=== PATIENT | female | born 1965 | race Caucasian/White ===

== ENCOUNTER 2018-08-05 07:46 | Day surgery (SDC) | payer BC ==
[2018-08-03 09:24] VITALS: BMI 31.3
[~2018-08-05 07:46] MED LIST: LACTATED RINGERS 1,000 ML IV SCH; LIDOCAINE 1% 20 ML VIAL (10MG/ML) FOR IV START INTRADERMA PRN
[2018-08-05 08:08] VITALS: TEMP 98.5
[2018-08-05] MEDS ORDERED: PROPOFOL 10 MG/ML 20 ML VIAL IV ONE (08:26)
--- NOTE | 2018-08-05 08:50 | P.GSHP ---
History of Present Illness H&P Date: 08/05/18 Chief Complaint: Screening colonoscopy This a 53-year-old female presents today screening colonoscopy. Patient's had complaints of some constipation. Past Medical History Past Medical History: Asthma, GERD/Reflux, Hyperlipidemia Additional Past Medical History / Comment(s): HAD EPISODE OF BLOOD IN STOOL AND CHANGE IN BOWEL HABITS History of Any Multi-Drug Resistant Organisms: None Reported Past Surgical History: Cholecystectomy, Orthopedic Surgery Additional Past Surgical History / Comment(s): REAR LATERAL RELEASE IN MARIBEL LOWER LEGS. LASIK MARIBEL EYES, BONE SPUR LT SHOULDER REPAIR Past Anesthesia/Blood Transfusion Reactions: Motion Sickness Smoking Status: Never smoker - Past Family History Mother Family Medical History: Cancer Medications and Allergies Home Medications Medication Instructions Recorded Confirmed Type Montelukast [Singulair] 10 mg PO HS 02/23/14 08/05/18 History 80k-Biote Brand 1 cap PO DAILY 08/03/18 History Atorvastatin [Lipitor] 20 mg PO HS 08/03/18 08/05/18 History Cyanocobalamin (Vitamin B-12) 1,000 mcg PO DAILY 08/03/18 08/05/18 History [Vitamin B-12] Dim-Cap 1 cap PO DAILY 08/03/18 History Iodine 12.5 mg PO DAILY 08/03/18 08/05/18 History Iron-25mg 25 mg PO DAILY 08/03/18 08/05/18 History L.acidoph,Paracasei, B.lactis 1 each PO DAILY 08/03/18 08/05/18 History [Probiotic] Pnv No.95/Ferrous Fum/Folic AC 1 each PO DAILY 08/03/18 08/05/18 History [ Multivitamin Tablet] Progesterone, Micronized 400 mg PO HS 08/03/18 08/05/18 History [Progesterone] Omeprazole [PriLOSEC] 10 mg PO DAILY 08/05/18 08/05/18 History Allergies Allergy/AdvReac Type Severity Reaction Status Date / Time adhesive tape Allergy Rash/Hives Verified 08/05/18 08:04 codeine Allergy Rash/Hives Verified 08/05/18 08:04 Penicillins Allergy Rash/Hives Verified 08/05/18 08:04 Sulfa (Sulfonamide Allergy Rash/Hives, Verified 08/05/18 08:04 Antibiotics) MUSCLE SPASMS venom-honey bee Allergy Unknown Verified 08/05/18 08:04 [bee venom (honey bee)] NARCOTIC PAIN RX AdvReac "MAKES ME Uncoded 08/05/18 08:04 STONED," KNOCKED OUT, USELESS." Surgical - Exam Vital Signs Temp Pulse Resp BP Pulse Ox 98.5 F 68 16 147/67 97 08/05/18 07:58 08/05/18 07:58 08/05/18 07:58 08/05/18 07:58 08/05/18 07:58 - General well developed, well nourished, no distress - Eyes PERRL - ENT normal pinna - Neck no masses - Respiratory normal expansion - Cardiovascular Rhythm: regular - Abdomen Abdomen: soft, non tender Assessment and Plan Assessment: We'll perform screening colonoscopy
--- NOTE | 2018-08-05 09:00 | P.OP ---
Date of Procedure: 08/05/18 Preoperative Diagnosis: Screening colonoscopy Postoperative Diagnosis: Mild diverticulosis Procedure(s) Performed: Colonoscopy Anesthesia: MAC Surgeon: Avni Garcia Pathology: none sent Condition: stable Disposition: PACU Description of Procedure: Patient's placed on the endoscopy table in the lateral position. She received IV sedation. The digital rectal exam was performed which revealed no abnormalities. The flexible colonoscope then placed patient anus and passed throughout the entire colon. The ileocecal valve was visualized. The cecum, ascending colon, transverse colon appeared normal. In the descending and sigmoid: There was some very mild diverticulosis. The scope was then brought back the rectum and this appeared normal. Scope was withdrawn for patient.
[2018-08-05 09:07] VITALS: RESP 18
[2018-08-05 09:28] VITALS: BP 100/61; PULSE 64
== END 2018-08-05 09:57 | disposition home or self-care (01) ==
LOC: ORWHC2ENDO 07:46
PROVIDERS: ATTEND Surgery
DX: K57.31 Diverticulosis of large intestine without perforation or abscess with bleeding (principal); E78.5 Hyperlipidemia, unspecified; J45.909 Unspecified asthma, uncomplicated; K21.9 Gastro-esophageal reflux disease without esophagitis; Z79.899 Other long term (current) drug therapy; Z88.0 Allergy status to penicillin; Z88.2 Allergy status to sulfonamides; Z88.5 Allergy status to narcotic agent; Z91.030 Bee allergy status; Z90.49 Acquired absence of other specified parts of digestive tract; Z79.3 Long term (current) use of hormonal contraceptives
CPT/HCPCS: 45378; J2704

== ENCOUNTER → 2018-10-25 | Outpatient (CLI) | payer BC ==
--- NOTE | 2018-10-31 09:54 | MM ---
Reason for exam: screening (asymptomatic). Last mammogram was performed 3 years and 3 months ago. History: Patient is postmenopausal and is nulliparous. Taking estrogen beginning at age 51. Taking progesterone beginning at age 51. Physical Findings: A clinical breast exam by your physician is recommended on an annual basis and results should be correlated with mammographic findings. MG 3D Screening Mammo W/Cad Bilateral CC and MLO view(s) were taken. Prior study comparison: July 31, 2015, mammogram, performed at [facility]. January 15, 2012, mammogram, performed at [facility]. The breast tissue is heterogeneously dense. This may lower the sensitivity of mammography. There are benign appearing round calcifications bilaterally. There is no discrete abnormality. ASSESSMENT: Benign, BI-RAD 2 RECOMMENDATION: Routine screening mammogram of both breasts in 1 year.
== END | disposition home or self-care (01) ==
LOC: RADMAMWWP 07:01
PROVIDERS: ATTEND Obstetrics & Gynecology
DX: Z12.31 Encounter for screening mammogram for malignant neoplasm of breast (principal)
CPT/HCPCS: 77063; 77067

== ENCOUNTER → 2019-04-13 | Outpatient (CLI) | payer BC ==
--- NOTE | 2019-04-13 11:09 | CT ---
EXAMINATION TYPE: CT abdomen pelvis wo con DATE OF EXAM: 04/13/2019 COMPARISON: 05/23/2012 INDICATION: Abdomen Pain, bloody stool, bloating, fever, chills and Nausea x 11months DLP: 894 mGycm, Automated exposure control for dose reduction was used. CONTRAST: 0 mL of Isovue 300. Study performed without Oral Contrast TECHNIQUE: Axial images were obtained from above the diaphragm to the pubic rami in the axial plane a t 5 mm thick sections. Reconstructed images are reviewed on the computer in the coronal plane. FINDINGS: Limited CT sections are obtained the lung bases. The lung bases are clear. CT ABDOMEN: Liver: Normal Spleen: Normal Pancreas: Normal Adrenal glands: The adrenal glands are normal. Gallbladder: Surgically absent Kidneys: No masses are evident. No hydronephrosis is present. No cysts are present. No renal stone s are identified. Aorta: Vascular calcification is within the aorta. Inferior vena cava: Normal. CT PELVIS: Loops of bowel within the abdomen and pelvis are normal. This study is performed without oral con trast limiting bowel evaluation. Appendix: Normal as visualized. Urinary bladder: Normal. Genitourinary structures: Uterus is normal. Adnexal regions are clear. Osseous structures: No suspicious lytic or sclerotic lesions. IMPRESSIONS: 1. Unremarkable noncontrast CT abdomen pelvis
== END ==
LOC: RADCTMAIN 07:52
PROVIDERS: ATTEND Family Medicine
DX: R10.9 Unspecified abdominal pain (principal)
CPT/HCPCS: 74176

== ENCOUNTER → 2019-05-05 | Outpatient (CLI) | payer BC | END | disposition home or self-care (01) | LOC: LABWHC1 14:12 → EDSTATUS 15:18 | PROVIDERS: ATTEND Nurse Practitioner | DX: K52.9 Noninfective gastroenteritis and colitis, unspecified (principal) | CPT/HCPCS: 36415; 83630; 83993; 85652; 86140; 87045; 87046; 87328; 87329 ==

== ENCOUNTER 2019-07-11 08:46 | Day surgery (SDC) | payer BC ==
[2019-07-10 11:15] VITALS: BMI 29.7
[~2019-07-11 08:46] MED LIST changes: +LIDOCAINE 1% (10MG/ML) FOR IV START INTRADERMA PRN; -LIDOCAINE 1% 20 ML VIAL (10MG/ML) FOR IV START INTRADERMA PRN
[2019-07-11 09:19] VITALS: RESP 16; TEMP 97.6
[2019-07-11] MEDS ORDERED: PROPOFOL 10 MG/ML 20 ML VIAL IV ONE (09:41)
[2019-07-11] MEDS ORDERED: LIDOCAINE 1% INJ 10MG/ML (20 ML MDV) ONE (09:41)
[2019-07-11] MEDS ORDERED: IV FLUID CONTINUATION 250 ML IV ONE (10:07)
--- NOTE | 2019-07-11 10:08 | P.PCN ---
Date of Procedure: 07/11/19 Description of Procedure: BRIEF HISTORY: Patient is a 54-year-old female presenting for evaluation of intermittent blood tinged bowel movements. Symptoms have been present for approximately 6 months. Patient reports abdominal pain, intermittent diarrhea and blood per rectum. PROCEDURE PERFORMED: Colonoscopy with biopsy. PREOPERATIVE DIAGNOSIS: Rectal bleeding, change in bowel habits, abdominal pain. ESTIMATED BLOOD LOSS: Minimal. IV sedation per Anesthesia. PROCEDURE: After informed consent was obtained, the patient, was brought into the endoscopy unit. IV sedation was administered by Anesthesia under continuous monitoring. Digital rectal examination was normal. Initially the Olympus CF-190 flexible video colonoscope was then inserted in the rectum, gradually advanced into the cecum without any difficulty. Careful examination was performed as the scope was gradually being withdrawn. Ileocecal valve and the appendiceal orifice were visualized and appeared normal. The terminal ileum was intubated and appeared normal with biopsies taken. Prep was excellent. Mucosa of the cecum, ascending colon, transverse colon, descending colon, sigmoid colon, and rectum appeared normal, with biopsies of the right and left colon in the setting of altered bowel function. A few scattered sigmoid diverticula were noted. Retroflexion was performed in the rectum and no lesions were seen, low-grade internal hemorrhoids. The patient tolerated the procedure well. IMPRESSION: Normal-appearing colon from rectum to cecum and terminal ileum with random biopsies taken of the terminal ileum, right colon and left colon in the setting of altered bowel function. Mild sigmoid diverticulosis. Low-grade internal hemorrhoids. RECOMMENDATIONS: Findings of this examination were discussed with the patient. Okay to resume diet. Okay to continue medications. Await pathology from biopsies. Would recommend follow-up in clinic in 2-3 weeks for results of biopsies.
[2019-07-11 10:30] VITALS: BP 109/64; PULSE 86
== END 2019-07-11 10:41 | disposition home or self-care (01) ==
LOC: ORWHC2ENDO 08:46
PROVIDERS: ATTEND Internal Medicine
DX: K57.30 Diverticulosis of large intestine without perforation or abscess without bleeding (principal); K64.8 Other hemorrhoids; K62.5 Hemorrhage of anus and rectum; Z90.49 Acquired absence of other specified parts of digestive tract; E78.5 Hyperlipidemia, unspecified; J45.909 Unspecified asthma, uncomplicated; Z79.52 Long term (current) use of systemic steroids; Z79.899 Other long term (current) drug therapy; Z98.890 Other specified postprocedural states; Z88.5 Allergy status to narcotic agent; Z88.0 Allergy status to penicillin; Z88.2 Allergy status to sulfonamides; Z91.09 Other allergy status, other than to drugs and biological substances
CPT/HCPCS: 88305; 87635; 45380; J2001; J2704

== ENCOUNTER → 2019-07-20 | Outpatient (CLI) | payer BC | END | disposition home or self-care (01) | LOC: LABWHC1 12:27 | PROVIDERS: ATTEND Family Medicine | DX: R07.89 Other chest pain (principal); R60.9 Edema, unspecified | CPT/HCPCS: 36415; 83735; 83880; 84484; 85379 ==

== ENCOUNTER → 2021-04-24 | Outpatient (CLI) | payer OTHER ==
[2021-04-25 04:36] LABS: Basophils # (A) 0.07 X 10*3/uL (0.00-0.10); Basophils % (A) 1.5 %; Eosinophils # (A) 0.15 X 10*3/uL (0.04-0.35); Eosinophils % (A) 3.2 %; HCT 37.7 % (37.2-46.3); HGB 12.3 g/dL (12.0-15.0); Immature Grans, Automated 0.2 %; Lymphocytes # (A) 1.94 X 10*3/uL (0.90-5.00); Lymphocytes % (A) 41.3 %; MCH 31.2 pg (27.0-32.0); MCHC 32.6 g/dL (32.0-37.0); MCV 95.7 fL (80.0-97.0); Monocytes # (A) 0.45 X 10*3/uL (0.20-1.00); Monocytes % (A) 9.6 %; NRBC Per 100 WBC 0 /100 WBCS (0.0-0.0); Neutrophils # (A) 2.08 X 10*3/uL (1.80-7.70); Neutrophils % (A) 44.2 %; Platelet Count 299 X 10*3/uL (140-440); RBC 3.94 X 10*6/uL (4.10-5.20); RDW 12.3 % (11.5-14.5)
== END | disposition home or self-care (01) ==
LOC: LABPAT 15:58
PROVIDERS: ATTEND Obstetrics & Gynecology
DX: Z01.812 Encounter for preprocedural laboratory examination (principal); N95.0 Postmenopausal bleeding; N84.0 Polyp of corpus uteri
CPT/HCPCS: 36415; 85025

== ENCOUNTER → 2021-04-28 | Day surgery (SDC) | payer OTHER ==
[2021-04-24 15:03] VITALS: BMI 29.7
--- NOTE | 2021-04-24 17:45 | HP ---
HISTORY AND PHYSICAL DATE OF SURGERY: 04/28/2021 The patient is a 56-year-old 0, para 0, who recently presented to the office with postmenopausal spotting and bleeding and was seen at her annual exam to have a known endocervical polyp present. She was sent for pelvic ultrasound, which shows the endocervical polyp, but also a probable endometrial polyp as well as some slight thickening of the endometrium. She has been using bioidentical hormone replacement therapy and wishes to continue, but cannot have doses placed again until a determination is made regarding the source of the bleeding and benign nature of the endometrium. As a result, we have opted to proceed with diagnostic hysteroscopy with D and C and endometrial and endocervical polypectomy. PAST MEDICAL HISTORY: Significant for asthma, for which she has been hospitalized in the distant past. She also has high cholesterol and a history of mitral valve prolapse. PAST SURGICAL HISTORY: Significant only for cholecystectomy as well as diagnostic laparoscopy in 1995. She also had rotator cuff surgery on the left side in 2014. There is no history of any anesthetic concerns. OBSTETRICAL HISTORY: 0, para 0 with method of contraception being menopause. GYNECOLOGIC HISTORY: Unremarkable with no history of any infections to include STDs. FAMILY HISTORY: Noncontributory. SOCIAL HISTORY: The patient is and works in sales. She is a nonsmoker and reports occasional alcohol. No other social concerns. CURRENT MEDICATIONS: Current medications include atorvastatin 20 mg daily, bioidentical hormones per protocol, Prometrium 200 mg at bedtime, Singulair daily, spironolactone 50 mg daily, Symbicort as needed, and a rescue inhaler as needed. ALLERGIES: CODEINE caused hives. PENICILLINS caused rash and hives, as does LATEX. SULFA caused reportedly rash, hives and muscle spasms. REVIEW OF SYSTEMS: Confined to history of present illness. PHYSICAL EXAMINATION: Vital signs are stable. The patient is afebrile. In general, this is a well- developed, well-nourished white female in no acute distress. Her heart has a regular rhythm and rate without murmur. Her lungs are clear to auscultation bilaterally in all rebollar. Her abdomen is nondistended, has normoactive bowel sounds, is soft, nontender, and without any masses, hepatosplenomegaly, or hernias. Her extremities are without any cyanosis, clubbing, or edema and are nontender to palpation. Pelvic examination is deferred to the OR. ASSESSMENT AND PLAN: Postmenopausal bleeding with probable endometrial polyp and certain endocervical polyp. We discussed options and have decided to proceed with diagnostic hysteroscopy, endocervical and endometrial polypectomy as well as D and C. Risks and complications of the procedure have been thoroughly discussed, including the risks for bleeding, bleeding requiring transfusion, infection, injury to local structures, specifically to include uterine perforation and potential for Asherman syndrome. She has understood all this and has agreed to proceed. We are scheduled for the morning of April 28, 2021, for the procedures as outlined above. MMODL / IJN: [id number] /
[~2021-04-28] MED LIST changes: +DEXAMETHASONE SOD PHOSPHATE 4 MG/ML 1 ML VIAL IV ONE; +KETOROLAC 15 MG/ML 1 ML VIAL IVP PRN; +KETOROLAC 15 MG/ML 1 ML VIAL ONE; +KETOROLAC 30 MG/ML 1 ML VIAL IVP PRN; -LIDOCAINE 1% (10MG/ML) FOR IV START INTRADERMA PRN; +LIDOCAINE 1% INJ 10MG/ML (20 ML MDV) ONE; +METOCLOPRAMIDE 5 MG/ML 2 ML VIAL IVP PRN; +MIDAZOLAM 2 MG/2 ML VIAL ONE; +ONDANSETRON 4 MG/2 ML VIAL IVP ONE; +ONDANSETRON 4 MG/2 ML VIAL IVP PRN; +PROPOFOL 10 MG/ML 20 ML VIAL IV ONE; +Pre Op ABX Message 1 EACH MISC MISCELLANE ONE; +SCOPOLAMINE 1.5MG/72HR PATCH TRANSDERM ONE; +SIMETHICONE 80 MG CHEWABLE PO PRN; +SORBITOL 3% IRRIGATION 3,000 ML IRRIGATION ONE; +diphenhydrAMINE 50 MG/ML 1 ML VIAL IVP PRN; +fentaNYL (PF) 50 MCG/ML 2 ML AMP IV PRN
[2021-04-28] MEDS: LACTATED RINGERS 1,000 ML IV SCH ×2 (08:40→09:50)
--- NOTE | 2021-04-28 10:30 | P.OP ---
Date of Procedure: 04/28/21 Preoperative Diagnosis: #1. Postmenopausal bleeding #2. Endocervical polyp #3. Presumptive endometrial polyp Postoperative Diagnosis: Same Procedure(s) Performed: #1. Endocervical polypectomy #2. Diagnostic hysteroscopy #3. Endometrial polypectomy Anesthesia: other (Gen. by LMA) Surgeon: Vishnu Calles Estimated Blood Loss (ml): 2 IV fluids (ml): 500 Urine output (ml): 30 Pathology: other (#1. Endocervical polyp #2. Endometrial curettings with endometrial polyp) Condition: stable Disposition: PACU Operative Findings: Preoperative pelvic examination demonstrated an atrophic midplane to slightly retroverted mobile normal shaped uterus with normal adnexa bilaterally. Intraoperatively, a roughly 6-8 mm endocervical polyp was noted within the cervical os. It was removed without difficulty. Using the hysteroscope, the bilateral tubal ostia were seen and a polyp was noted arising from the lower uterine segment on the posterior right hand aspect and was thought to been completely removed with a polyp forceps as well. Minimal curettings were returned with curettage. Description of Procedure: The patient was prepped and draped in usual fashion after general anesthesia was administered by the anesthesiologist. A weighted speculum was placed and the bladder was drained of approximately 30 mL of clear vasile urine. The anterior lip of the cervix was grasped with a single-tooth tenaculum and the polyp was clearly visible within the cervix. A ring forceps was utilized to grasp it was removed using a corkscrew method and appeared to be removed entirely from its base. The uterus was sounded to approximate 6-7 cm. Serial dilation was carried out to admit the diagnostic hysteroscope which was placed in the cavity which was distended with sorbitol. The bilateral tubal ostia were seen and the endometrium appeared to be entirely atrophic with a moderately sized endometrial polyp noted arising from the right middle to lower posterior section of the endometrial cavity. After adequate hysteroscopy been carried out, the scope was set aside and a polyp forceps introduced. The polyp was fairly easily grasped and was removed and appeared to be removed intact. A small sharp curette was introduced into the cavity with a Telfa in the vagina and thorough and circumferential endometrial curettage was carried out onto the Telfa. The typical gritty texture was encountered throughout and minimal tissue was returned. All instrumentation was then removed. One tenaculum site was noted to be bleeding and was made hemostatic with pressure. Estimated blood loss for the entire case was approximately 2 mL. There were no complications. All sponge, instrument, and needle counts were correct. The patient tolerated the procedure well and proceeded to the recovery room in stable condition.
[2021-04-28 10:37] VITALS: TEMP 97.8
[2021-04-28 11:20] VITALS: RESP 18
[2021-04-28 11:45] VITALS: BP 131/77; PULSE 75
== END | disposition home or self-care (01) ==
LOC: OR 07:59
PROVIDERS: ATTEND Obstetrics & Gynecology
DX: N84.1 Polyp of cervix uteri (principal); N95.0 Postmenopausal bleeding; R93.89 Abnormal findings on diagnostic imaging of other specified body structures; J45.909 Unspecified asthma, uncomplicated; E78.00 Pure hypercholesterolemia, unspecified; I34.1 Nonrheumatic mitral (valve) prolapse; E78.5 Hyperlipidemia, unspecified; K21.9 Gastro-esophageal reflux disease without esophagitis; Z90.49 Acquired absence of other specified parts of digestive tract; Z98.890 Other specified postprocedural states; Z79.890 Hormone replacement therapy; Z79.899 Other long term (current) drug therapy; Z88.0 Allergy status to penicillin; Z88.2 Allergy status to sulfonamides; Z91.040 Latex allergy status; Z88.5 Allergy status to narcotic agent; Z91.030 Bee allergy status; Z91.09 Other allergy status, other than to drugs and biological substances
CPT/HCPCS: 88305; 58558; J2250; J1100; J2405; J2001; J1885; J2704

== ENCOUNTER → 2022-03-23 | Outpatient (CLI) | payer OTHER ==
[2022-03-23 18:41] LABS: HCT 36.9 % (37.2-46.3); HGB 12.2 g/dL (12.0-15.0); MCH 30.7 pg (27.0-32.0); MCHC 33.1 g/dL (32.0-37.0); MCV 92.9 fL (80.0-97.0); Mean Platelet Volume 9.7 fL (9.5-12.2); NRBC Per 100 WBC 0 /100 WBCS (0.0-0.0); Platelet Count 313 X 10*3/uL (140-440); RBC 3.97 X 10*6/uL (4.10-5.20); RDW 11.7 % (11.5-14.5); WBC 4.86 X 10*3/uL (4.50-10.00)
[2022-03-23 19:15] LABS: African American GFR (CKD) 82.8 (60.0-200.0); Albumin 4.8 g/dL (3.8-4.9); Albumin/Globulin Ratio 2.09 (1.60-3.17); Anion Gap 9.8 mmol/L (10.00-18.00); BUN/Creat Ratio 8.22 Ratio (12.00-20.00); Blood Urea Nitrogen 7.4 mg/dL (9.0-27.0); Calcium 10.1 mg/dL (8.7-10.3); Carbon Dioxide 27.2 mmol/L (20.0-27.5); Globulin 2.3 g/dL (1.6-3.3); Non-African American GFR(CKD) 71.5 (60.0-200.0); Potassium 4.4 mmol/L (3.5-5.5); Total Bilirubin 0.2 mg/dL (0.30-1.20); Total Protein 7.1 g/dL (6.2-8.2)
== END | disposition home or self-care (01) ==
LOC: LABWHC1 12:17
PROVIDERS: ATTEND Internal Medicine
DX: I87.1 Compression of vein (principal); R60.0 Localized edema
CPT/HCPCS: 36415; 80053; 85027

== ENCOUNTER 2022-12-05 11:23 | Emergency (ER) | payer OTHER ==
[2022-12-05 11:32] VITALS: BP 126/68; RESP 18; TEMP 98.3
[2022-12-05] MEDS ORDERED: HYDROmorphone 0.5 MG/0.5 ML SYRINGE IVP STA (11:40)
[2022-12-05] MEDS ORDERED: SODIUM CHLORIDE 0.9% 1,000 ML IV STA (11:40)
[2022-12-05] MEDS ORDERED: ONDANSETRON 4 MG/2 ML VIAL IVP STA (11:40)
[2022-12-05] MEDS ORDERED: SODIUM CHLORIDE 0.9% 500 ML 500 ML IV STA (11:40)
[2022-12-05 12:47] LABS: Appearance,Urine Cloudy (Clear); Bacteria,Urine Occasional /hpf; Bilirubin,Urine Negative (Negative); Blood,Urine Moderate (Negative); Color,Urine Yellow; Glucose,Urine (UA) Negative (Negative); Hyaline Casts,Urine 1 /lpf (0-2); Ketones,Urine Negative (Negative); Leukocyte Esterase,Urine Negative (Negative); Mucus,Urine Occasional /hpf; Nitrite,Urine Negative (Negative); PH, Urine 5.5 (5.0-8.0); Protein,Urine 1+ (Negative); RBC,Urine 4 /hpf (0-5); Specific Gravity,Urine 1.017 (1.001-1.035); Squamous Epithelial Cell,Urine 2 /hpf (0-4); Urobilinogen,Urine <2.0 mg/dL (<2.0); WBC,Urine 3 /hpf (0-5)
[2022-12-05 12:55] LABS: Basophils % (A) 0 %; Eosinophils % (A) 0 %; HCT 35.9 % (34.0-46.0); HGB 12.7 gm/dL (11.4-16.0); Lymphocytes # (A) 0.6 k/uL (1.0-4.8); Lymphocytes % (A) 11 %; MCHC 35.3 g/dL (31.0-37.0); MCV 90.5 fL (80.0-100.0); Mean Platelet Volume 7.2; Monocytes # (A) 0.3 k/uL (0-1.0); Monocytes % (A) 5 %; Neutrophils # (A) 4.6 k/uL (1.3-7.7); Neutrophils % (A) 82 %; Platelet Count 279 k/uL (150-450); RBC 3.97 m/uL (3.80-5.40); RDW 11.9 % (11.5-15.5); WBC 5.6 k/uL (3.8-10.6)
[2022-12-05 12:58] LABS: ALT 95 U/L (4-34); AST 82 U/L (14-36); African American GFR (CKD) >90 (>60 ml/min/1.73 sqM); Albumin 4.4 g/dL (3.5-5.0); Alkaline Phosphatase 66 U/L (38-126); Anion Gap 14 mmol/L; Blood Urea Nitrogen 14 mg/dL (7-17); Calcium 9.5 mg/dL (8.4-10.2); Carbon Dioxide 20 mmol/L (22-30); Chloride 96 mmol/L (98-107); Glucose 112 mg/dL (74-99); Lipase 87 U/L (23-300); Non-African American GFR(CKD) 89 (>60 ml/min/1.73 sqM); Potassium 4.1 mmol/L (3.5-5.1); Sodium 130 mmol/L (137-145); Total Bilirubin 0.6 mg/dL (0.2-1.3); Total Protein 7.5 g/dL (6.3-8.2)
--- NOTE | 2022-12-05 13:30 | ED ---
Abdominal Pain HPI - General Chief Complaint: Abdominal Pain Stated Complaint: Abn labs Time Seen by Provider: 12/05/22 11:32 Source: patient, RN notes reviewed Mode of arrival: ambulatory Limitations: no limitations - History of Present Illness Initial Comments: 57-year-old female presents emergency Department from urgent care for evaluation of left lower quadrant abdominal pain. Patient states been having increased pain last few days. Patient had noted hematuria on urinalysis. Patient does have a history of diverticulosis. She reports fever at home denies any dysuria doesn't that she's been having significant diarrhea and states that she feels dehydrated. She states pain is very uncomfortable. - Related Data Home Medications Medication Instructions Recorded Confirmed Montelukast [Singulair] 10 mg PO HS 02/23/14 04/28/21 Atorvastatin [Lipitor] 20 mg PO HS 08/03/18 04/28/21 L.acidoph,Paracasei, B.lactis 1 each PO DAILY 08/03/18 04/28/21 [Probiotic] Pnv No.95/Ferrous Fum/Folic AC 1 each PO DAILY 08/03/18 04/28/21 [ Multivitamin Tablet] Progesterone, Micronized 200 mg PO HS 08/03/18 04/28/21 [Progesterone] Omeprazole [PriLOSEC] 10 mg PO DAILY 08/05/18 04/28/21 Dim Sgs Supplement 1 tab PO DAILY 05/18/19 04/28/21 Iodine Plus Zinc & Selinium 1 dose PO DAILY 05/18/19 04/28/21 Iron 25 mg PO DAILY 05/18/19 04/28/21 Turmeric Root Extract [Turmeric] 450 mg PO DAILY 05/18/19 04/28/21 Vitamin Adk Supplement 1 tab PO DAILY 05/18/19 04/28/21 Albuterol Sulfate [Proair Hfa] 1 - 2 puff INHALATION DIRECTED 07/10/19 04/28/21 PRN Budesonide/Formoterol Fumarate 2 puff INHALATION BID 04/24/21 04/28/21 [Symbicort 80-4.5 Mcg Inhaler] Magnesium 125 mg PO DAILY 04/24/21 04/28/21 Spironolactone (Unknown Dose) 1 tab PO DAILY 04/24/21 04/28/21 Previous Rx's Medication Instructions Recorded Ciprofloxacin HCl [Cipro] 500 mg PO Q12HR #20 tablet 12/05/22 HYDROcodone/APAP 5-325MG [Basalt 5] 1 each PO Q6HR PRN #12 tab 12/05/22 Ondansetron Odt [Zofran Odt] 4 mg PO Q8HR PRN #10 tab 12/05/22 metroNIDAZOLE [Flagyl] 500 mg PO TID #30 tab 12/05/22 Allergies Allergy/AdvReac Type Severity Reaction Status Date / Time adhesive tape Allergy Rash/Hives Verified 12/05/22 11:31 codeine Allergy Rash/Hives Verified 12/05/22 11:31 Penicillins Allergy Rash/Hives Verified 12/05/22 11:31 Sulfa (Sulfonamide Allergy Rash/Hives, Verified 12/05/22 11:31 Antibiotics) MUSCLE SPASMS venom-honey bee Allergy INFECTION Verified 12/05/22 11:31 [bee venom (honey bee)] NARCOTIC PAIN RX AdvReac "MAKES ME Uncoded 12/05/22 11:31 STONED," KNOCKED OUT, USELESS." Review of Systems ROS Statement: Those systems with pertinent positive or pertinent negative responses have been documented in the HPI. ROS Other: All systems not noted in ROS Statement are negative. Past Medical History Past Medical History: Asthma, GERD/Reflux, Hyperlipidemia Additional Past Medical History / Comment(s): Hx Bronchitis. Low iron. History of Any Multi-Drug Resistant Organisms: None Reported Past Surgical History: Cholecystectomy, Orthopedic Surgery Additional Past Surgical History / Comment(s): REAR LATERAL RELEASE IN BILATERAL LOWER LEGS, BILATERAL LASIK EYE SURGERY, LEFT ROTATOR AND BICEP REPAIR, Colonoscopy. Past Anesthesia/Blood Transfusion Reactions: No Reported Reaction, Motion Sickness Past Psychological History: No Psychological Hx Reported Smoking Status: Never smoker Past Alcohol Use History: Occasional Past Drug Use History: None Reported - Past Family History Mother Family Medical History: Cancer Additional Family Medical History / Comment(s): Lung cancer. General Exam Limitations: no limitations General appearance: alert, in no apparent distress Head exam: Present: atraumatic, normocephalic, normal inspection Eye exam: Present: normal appearance, PERRL, EOMI. Absent: scleral icterus, conjunctival injection, periorbital swelling Respiratory exam: Present: normal lung sounds bilaterally. Absent: respiratory distress, wheezes, rales, rhonchi, stridor Cardiovascular Exam: Present: regular rate, normal rhythm, normal heart sounds. Absent: systolic murmur, diastolic murmur, rubs, gallop, clicks GI/Abdominal exam: Present: soft, tenderness (Left lower quadrant), normal bowel sounds. Absent: distended, guarding, rebound, rigid Course Vital Signs 12/05/22 11:28 Temperature 98.3 F Pulse Rate 98 Respiratory 18 Rate Blood Pressure 126/68 O2 Sat by Pulse 99 Oximetry Medical Decision Making - Medical Decision Making Was pt. sent in by a medical professional or institution (, PA, LUMP MA[employer]ER, urgent care, hospital, or long-term...) When possible be specific @ -[Urgent care Did you speak to anyone other than the patient for history (EMS, parent, family, police, friend...)? What history was obtained from this source @ -No Did you review nursing and triage notes (agree or disagree)? Why? @ -I reviewed and agree with nursing and triage notes Were old charts reviewed (outside hosp., previous admission, EMS record, old EKG, old radiological studies, urgent care reports/EKG's, long-term records)? Report findings @ -No old charts were reviewed Differential Diagnosis (chest pain, altered mental status, abdominal pain women, abdominal pain men, vaginal bleeding, weakness, fever, dyspnea, syncope, headache, dizziness, GI bleed, back pain, seizure, CVA, palpatations, mental health, musculoskeletal)? @ -Differential Abdominal Pain Women: Appendicitis, Cholecystitis, diverticulosis, ischemic bowel, pancreatitis, hepatitis, UTI, gastroenteritis, AAA, incarcerated hernia, bowel obstruction, constipation, inflammatory bowel, hepatitis, peptic ulcer disease, splenic infarction, perforated viscus, vulvitis, ovarian torsion, PID, kidney stone, placenta abruption, this is not meant to be an all-inclusive listle EKG interpreted by me (3pts min.). @ -None X-rays interpreted by me (1pt min.). @ -None done CT interpreted by me (1pt min.). @ -CT abdomen and pelvis showing evidence of diffuse colitis U/S interpreted by me (1pt. min.). @ -None done What testing was considered but not performed or refused? (CT, X-rays, U/S, labs)? Why? @ -None What meds were considered but not given or refused? Why? @ -None Did you discuss the management of the patient with other professionals (professionals i.e. DrDarlene, PA, LUMP MA[employer]ER, lab, RT, psych nurse, bilingual social worker, research/program director, teacher, toxics program officer, director of casework)? Give summary @ -No Was smoking cessation discussed for >3mins.? @ -No Was critical care preformed (if so, how long)? @ -No Were there social determinants of health that impacted care today? How? (Homelessness, low income, unemployed, alcoholism, drug addiction, trans portation, low edu. Level, literacy, decrease access to med. care, [facility], rehab)? @ -No Was there de-escalation of care discussed even if they declined (Discuss DNR or withdrawal of care, Hospice)? DNR status @ -No What co-morbidities impacted this encounter? (DM, HTN, Smoking, COPD, CAD, Cancer, CVA, ARF, Chemo, Hep., AIDS, mental health diagnosis, sleep apnea, morbid obesity)? @ -None Was patient admitted / discharged? Hospital course, mention meds given and route, prescriptions, significant lab abnormalities, going to OR and other pertinent info. @ -Discharge patient's been having fever at home increase abdominal pain does have a history of diverticulosis CT shows colitis patient discharged on oral antibiotics, clear liquid diet, analgesics and antiemetics. Patient will return for any worsening changing symptoms. Patient advised to follow-up with PCP for recheck urinalysis secondary to hematuria. Undiagnosed new problem with uncertain prognosis? @ -No Drug Therapy requiring intensive monitoring for toxicity (Heparin, Nitro, Insulin, Cardizem)? @ -No Were any procedures done? @ -No Diagnosis/symptom? @ -Colitis, hematuria Acute, or Chronic, or Acute on Chronic? @ -Acute Uncomplicated (without systemic symptoms) or Complicated (systemic symptoms)? @ -[Complicated Side effects of treatment? @ -No Exacerbation, Progression, or Severe Exacerbation? @ -No Poses a threat to life or bodily function? How? (Chest pain, USA, NC, pneumonia, PE, COPD, DKA, ARF, appy, cholecystitis, CVA, Diverticulitis, Homicidal, Suicidal, threat to staff... and all critical care pts) @ -No - Lab Data Result diagrams: 12/05/22 12:08 12/05/22 12:08 Lab Results 12/05/22 12/05/22 12/05/22 Range/Units 12:08 12:08 12:08 WBC 5.6 (3.8-10.6) k/uL RBC 3.97 (3.80-5.40) m/uL Hgb 12.7 (11.4-16.0) gm/dL Hct 35.9 (34.0-46.0) % MCV 90.5 (80.0-100.0) fL MCH 32.0 (25.0-35.0) pg MCHC 35.3 (31.0-37.0) g/dL RDW 11.9 (11.5-15.5) % Plt Count 279 (150-450) k/uL MPV 7.2 Neutrophils % 82 % Lymphocytes % 11 % Monocytes % 5 % Eosinophils % 0 % Basophils % 0 % Neutrophils # 4.6 (1.3-7.7) k/uL Lymphocytes # 0.6 L (1.0-4.8) k/uL Monocytes # 0.3 (0-1.0) k/uL Eosinophils # 0.0 (0-0.7) k/uL Basophils # 0.0 (0-0.2) k/uL Sodium 130 L (137-145) mmol/L Potassium 4.1 (3.5-5.1) mmol/L Chloride 96 L (98-107) mmol/L Carbon Dioxide 20 L (22-30) mmol/L Anion Gap 14 mmol/L BUN 14 (7-17) mg/dL Creatinine 0.76 (0.52-1.04) mg/dL Est GFR (CKD-EPI)AfAm >90 (>60 ml/min/1.73 sqM) Est GFR (CKD-EPI)NonAf 89 (>60 ml/min/1.73 sqM) Glucose 112 H (74-99) mg/dL Plasma Lactic Acid Brien (0.7-2.0) mmol/L Calcium 9.5 (8.4-10.2) mg/dL Total Bilirubin 0.6 (0.2-1.3) mg/dL AST 82 H (14-36) U/L ALT 95 H (4-34) U/L Alkaline Phosphatase 66 (38-126) U/L Total Protein 7.5 (6.3-8.2) g/dL Albumin 4.4 (3.5-5.0) g/dL Lipase 87 (23-300) U/L Urine Color Yellow Urine Appearance Cloudy H (Clear) Urine pH 5.5 (5.0-8.0) Ur Specific Eden 1.017 (1.001-1.035) Urine Protein 1+ H (Negative) Urine Glucose (UA) Negative (Negative) Urine Ketones Negative (Negative) Urine Blood Moderate H (Negative) Urine Nitrite Negative (Negative) Urine Bilirubin Negative (Negative) Urine Urobilinogen <2.0 (<2.0) mg/dL Ur Leukocyte Esterase Negative (Negative) Urine RBC 4 (0-5) /hpf Urine WBC 3 (0-5) /hpf Ur Squamous Epith Cells 2 (0-4) /hpf Urine Bacteria Occasional H (None) /hpf Hyaline Casts 1 (0-2) /lpf Urine Mucus Occasional H (None) /hpf 12/05/22 Range/Units 12:08 WBC (3.8-10.6) k/uL RBC (3.80-5.40) m/uL Hgb (11.4-16.0) gm/dL Hct (34.0-46.0) % MCV (80.0-100.0) fL MCH (25.0-35.0) pg MCHC (31.0-37.0) g/dL RDW (11.5-15.5) % Plt Count (150-450) k/uL MPV Neutrophils % % Lymphocytes % % Monocytes % % Eosinophils % % Basophils % % Neutrophils # (1.3-7.7) k/uL Lymphocytes # (1.0-4.8) k/uL Monocytes # (0-1.0) k/uL Eosinophils # (0-0.7) k/uL Basophils # (0-0.2) k/uL Sodium (137-145) mmol/L Potassium (3.5-5.1) mmol/L Chloride (98-107) mmol/L Carbon Dioxide (22-30) mmol/L Anion Gap mmol/L BUN (7-17) mg/dL Creatinine (0.52-1.04) mg/dL Est GFR (CKD-EPI)AfAm (>60 ml/min/1.73 sqM) Est GFR (CKD-EPI)NonAf (>60 ml/min/1.73 sqM) Glucose (74-99) mg/dL Plasma Lactic Acid Brien 0.9 (0.7-2.0) mmol/L Calcium (8.4-10.2) mg/dL Total Bilirubin (0.2-1.3) mg/dL AST (14-36) U/L ALT (4-34) U/L Alkaline Phosphatase (38-126) U/L Total Protein (6.3-8.2) g/dL Albumin (3.5-5.0) g/dL Lipase (23-300) U/L Urine Color Urine Appearance (Clear) Urine pH (5.0-8.0) Ur Specific Eden (1.001-1.035) Urine Protein (Negative) Urine Glucose (UA) (Negative) Urine Ketones (Negative) Urine Blood (Negative) Urine Nitrite (Negative) Urine Bilirubin (Negative) Urine Urobilinogen (<2.0) mg/dL Ur Leukocyte Esterase (Negative) Urine RBC (0-5) /hpf Urine WBC (0-5) /hpf Ur Squamous Epith Cells (0-4) /hpf Urine Bacteria (None) /hpf Hyaline Casts (0-2) /lpf Urine Mucus (None) /hpf Disposition Clinical Impression: Colitis, Hematuria Disposition: HOME SELF-CARE Condition: Stable Instructions (If sedation given, give patient instructions): Infectious Colitis (ED) Additional Instructions: Please return to the Emergency Department if symptoms worsen or any other concerns. Prescriptions: Ciprofloxacin HCl [Cipro] 500 mg PO Q12HR #20 tablet metroNIDAZOLE [Flagyl] 500 mg PO TID #30 tab HYDROcodone/APAP 5-325MG [Basalt 5] 1 each PO Q6HR PRN #12 tab PRN Reason: Pain Ondansetron Odt [Zofran Odt] 4 mg PO Q8HR PRN #10 tab PRN Reason: Nausea Is patient prescribed a controlled substance at d/c from ED?: Yes When asked, does pt state using other controlled substances?: No If prescribed controlled substance>3 days was MAPS reviewed?: Prescribed <3 Days If opioid is for acute pain is fill amount 7 days or less?: Yes If Rx opioid, was Start Talking consent form obtained?: Yes Referrals: Danie Jolly DO [Primary Care Provider] - 1-2 days Kirsten Garcia MD [STAFF PHYSICIAN] - 1-2 days Time of Disposition: 14:25
--- NOTE | 2022-12-05 14:01 | CT ---
EXAMINATION TYPE: CT abdomen pelvis w con DATE OF EXAM: 12/05/2022 COMPARISON: HISTORY: Abdominal pain, abnormal labs, microhematuria CT DLP: 1110 mGycm CONTRAST: CT scan of the abdomen and pelvis is performed without Oral Contrast and with IV Contrast, patient in jected with 100 mL of Isovue 300. FINDINGS: LUNG BASES-: No visible nodule. No infiltrate. LIVER/GB: No calcified gallstones. No space occupying hepatic lesion. Biliary tree is of normal ca liber. PANCREAS: No inflammation. No distinct mass. SPLEEN: No splenic enlargement. No lesion seen. ADRENALS: No nodule. No thickening. KIDNEYS/BLADDER: No hydronephrosis. No nephrolithiasis. No distinct renal mass. Urinary bladder g rossly unremarkable. BOWEL: There is small and large bowel wall thickening. Correlate for enterocolitis. I do not see evid ence for free air. Normal-appearing appendix. GENITAL ORGANS: No gross abnormality. LYMPH NODES: No greater than 1cm abdominal or pelvic lymph nodes are appreciated. AORTA: Iliac stents noted. OSSEOUS STRUCTURES: No significant abnormality is seen. OTHER: No significant additional abnormality is seen. IMPRESSION: 1. Correlate for nonspecific enterocolitis. Possibilities include infectious inflammatory and vascula r etiologies.
[2022-12-05 14:37] VITALS: PULSE 91
== END 2022-12-05 14:33 | disposition home or self-care (01) ==
LOC: EC 11:23
DX: K52.9 Noninfective gastroenteritis and colitis, unspecified (principal); R31.9 Hematuria, unspecified; J45.909 Unspecified asthma, uncomplicated; K21.9 Gastro-esophageal reflux disease without esophagitis; E78.5 Hyperlipidemia, unspecified; Z79.899 Other long term (current) drug therapy; Z79.51 Long term (current) use of inhaled steroids; Z88.0 Allergy status to penicillin; Z88.2 Allergy status to sulfonamides; Z88.5 Allergy status to narcotic agent; Z91.030 Bee allergy status; Z91.048 Other nonmedicinal substance allergy status; Z90.49 Acquired absence of other specified parts of digestive tract
CPT/HCPCS: 36415; 80053; 83605; 83690; 85025; 81001; 74177; 99284; 96374; 96375; 96361 ×2; J2405; J1170; Q9967

== ENCOUNTER → 2023-05-31 | Outpatient (CLI) | payer OTHER ==
--- NOTE | 2023-05-31 07:55 | US ---
EXAMINATION TYPE: US carotid duplex BILAT DATE OF EXAM: 05/31/2023 COMPARISON: NONE CLINICAL INDICATION: Female, 58 years old with history of R55 SYNCOPE AND COLLAPSE; EMERY, Increased ch olesterol (on medications), leg swelling, asthma, Iliac stents placed to reduce compression TECHNIQUE: Carotid duplex ultrasound examination. Indirect Doppler criteria was utilized. FINDINGS: EXAM MEASUREMENTS: RIGHT: Peak Systolic Velocity (PSV) cm/sec ----- Right CCA: 70 ----- Right ICA: 93 ----- Right ECA: 125 ICA/CCA ratio: 1.3 RIGHT: End Diastole cm/sec ----- Right CCA: 23 ----- Right ICA: 33 ----- Right ECA: 19 LEFT: Peak Systolic Velocity (PSV) cm/sec ----- Left CCA: 66 ----- Left ICA: 104 ----- Left ECA: 141 ICA/CCA ratio: 1.6 LEFT: End Diastole cm/sec ----- Left CCA: 23 ----- Left ICA: 43 ----- Left ECA: 17 VERTEBRALS (direction of flow): Right Vertebral: Antegrade Left Vertebral: Antegrade Rhythm: Arrhythmia LUNG GUN OPERATOR NOTES: Calcified plaque bilateral CCA bulbs, elevated velocity within the left ECA, and n o intimal thickening IMPRESSION: No evidence for edema for hemodynamically significant stenosis. Criteria for Assigning % of Stenosis / Diameter reduction (Estimation based on the indirect measurements of the internal carotid artery velocities (ICA PSV). 1. Normal (no stenosis)=ICA PSV < 125 cm/s: ratio < 2.0: ICA EDV<40 cm/s. 2. Less than 50% stenosis=ICA PSV < 125 cm/s: ratio < 2.0: ICA EDV<40 cm/s. 3. 50 to 69% stenosis=ICA PSV of 125 to 230 cm/s: ration 2.0 ? 4.0: ICA EDV 40-100 cm/s. 4. Greater than 70% stenosis to near occlusion= ICA PSV > 230 cm/s: ratio > 4.0: ICA EDV > 100 cm/s. 5. Near occlusion= ICA PSV velocities may be low or undetectable: variable ratio and ICA EDV. 6. Total occlusion=unable to detect flow.
== END | disposition home or self-care (01) ==
LOC: RADUSWWP 07:28
PROVIDERS: ATTEND Family Medicine
DX: R55 Syncope and collapse (principal); M79.89 Other specified soft tissue disorders; E78.00 Pure hypercholesterolemia, unspecified; J45.909 Unspecified asthma, uncomplicated; Z95.820 Peripheral vascular angioplasty status with implants and grafts
CPT/HCPCS: 93880

== ENCOUNTER → 2024-06-22 | Outpatient (CLI) | payer BC | END | disposition home or self-care (01) | LOC: LABWHC1 14:03 | PROVIDERS: ATTEND Obstetrics & Gynecology | DX: N83.8 Other noninflammatory disorders of ovary, fallopian tube and broad ligament (principal) | CPT/HCPCS: 36415; 81503 ==